=== PATIENT | male | born 1950 | race Caucasian/White ===

== ENCOUNTER → 2018-09-01 | Outpatient (CLI) | payer BC ==
[~2018-09-01] MED LIST: ENAL20TA99 PO; EZET1TAB53 PO; HYDR-385 PO; KET10 PO
--- NOTE | 2018-09-01 16:42 | EKG ---
FACILITY: [facility] [place] PATIENT NAME: HERON HUDSON : [id number] MR: [id number]: [id number] EXAM DATE: ORDERING PHYSICIAN: MIKEY ABAD TECHNOLOGIST: SHAY Test Reason : IRREGULAR HEART BEAT Blood Pressure : / mmHG Vent. Rate : 065 BPM Atrial Rate : 065 BPM P-R Int : 164 ms QRS Dur : 106 ms QT Int : 438 ms P-R-T Axes : 046 059 040 degrees QTc Int : 455 ms Sinus rhythm Possible left atrial enlargement Decreased R wave progression anteriorly Confirmed by LUIS ANTONIO PARIS ([id number] on 09/02/2018 6:37:09 AM Referred By: POLLO Confirmed By:LUIS ANTONIO PARIS
== END ==
LOC: RESP 15:42
PROVIDERS: ATTEND Family Medicine
DX: I49.9 Cardiac arrhythmia, unspecified (principal)
CPT/HCPCS: 93005